=== PATIENT | female | born 1960 | race African-American/Black ===

== ENCOUNTER 2017-10-26 13:13 | Outpatient (CLI) | payer MEDICARE ==
--- NOTE | 2017-10-26 14:55 | PET ---
PET SCAN DEMENTIA: CLINICAL INDICATION: Frontotemporal dementia. No prior imaging comparisons are available. FINDINGS: Metabolic activity of the frontal lobes reveals interspersed areas of diminished metabolic activity o f the anterior and lateral, bifrontal cortex with a relative degree of sparing of the posterior front al cortex bilaterally. There is diminished metabolic activity fairly symmetrically distributed withi n the parietal and temporal lobes. In addition, there is interspersed diminished uptake of the bila teral frontal lobes. CT attenuation correction imaging, noncontrast, reveals a mild degree of parenchymal volume loss with compensatory dilatation of the ventricular system. There is no acute intracranial mass effect or mi dline shift. IMPRESSION: Diminished metabolic activity primarily involving the parietal and temporal lobes bilaterally. This is associated with a mild degree of parenchymal volume loss on the attenuation correction noncontrast CT imaging. Findings may relate to an early-onset dementia complex, given patient's age. Correlate clinically in this regard POS: MAYRA
== END 2017-10-26 13:14 | disposition home or self-care (01) ==
LOC: PET 13:13
PROVIDERS: ATTEND Psychiatry & Neurology Neurology
DX: G31.09 Other frontotemporal neurocognitive disorder (principal)
CPT/HCPCS: 78608; A9552